=== PATIENT | female | born 1970 | race Caucasian/White ===

== ENCOUNTER 2024-05-23 08:22 | Emergency (ER) | payer OTHER, SELFPAY ==
[2024-05-23 08:40] VITALS: BP 131/84; PULSE 103; TEMP 36.7; O2SAT 99; BMI 30.4
--- NOTE | 2024-05-23 08:54 | ED.NAVMDI1 ---
HPI - Nausea/Vomiting/Diarrhea General Chief complaint: Nausea/Vomiting/Diarrhea Stated complaint: FLU LIKE SYMPTOMS/ POST OPERATIVE COMPLICATIONS Time Seen by Provider: 05/23/24 08:28 Source: patient Mode of arrival: Wheelchair Limitations: no limitations History of Present Illness HPI Narrative: 53-year-old female presents to the emergency department for nausea vomiting and diarrhea which began about 2:00 this morning. She was recently around a family member who has similar symptoms. No fever or hematemesis. She had inguinal hernia repair about a month ago. Related Data Home Medications ?Medication ?Instructions ?Recorded ?Confirmed amlodipine 10 mg tablet 10 mg PO DAILY 05/23/24 05/23/24 metformin 1,000 mg tablet 500 mg PO DAILY 05/23/24 05/23/24 olmesartan 40 mg tablet (Benicar) 40 mg PO DAILY 05/23/24 05/23/24 omeprazole 20 mg capsule,delayed 20 mg PO DAILY 05/23/24 05/23/24 release rosuvastatin 20 mg tablet (Crestor) 20 mg PO DAILY 05/23/24 05/23/24 sertraline 100 mg tablet (Zoloft) 50 mg PO DAILY 05/23/24 05/23/24 trazodone 50 mg tablet 25 mg PO BEDTIME 05/23/24 05/23/24 Allergies Allergy/AdvReac Type Severity Reaction Status Date / Time lisinopril AdvReac Mild Cough Verified 05/23/24 08:40 Penicillins AdvReac Mild Hives Verified 05/23/24 08:40 Review of Systems ROS Narrative A ten point review of systems is negative except as noted above. Exam Narrative Exam Narrative: Nurses note and vital signs reviewed and patient is not hypoxic. General: The patient appears in no apparent distress. Skin: Warm, dry, no pallor noted. There is no rash noted. Head: Normocephalic, atraumatic Eye: Normal conjunctiva, no drainage Ears, Nose, Mouth, and Throat: oral mucosa is moist. Nares patent. Cardiovascular: Regular Rate and Rhythm Respiratory: Patient is in no distress, no accessory muscle use, lungs are clear to auscultation, no wheezing, rales or rhonchi Back: non-tender GI: Soft and nontender. Surgical incision well-healed Musculoskeletal: The patient has no evidence of calf tenderness, no pitting edema, symmetrical pulses noted bilaterally Neurological: A&O, normal speech Psychiatric: Cooperative Constitutional Vital Signs, click to edit/add: Last Vital Signs Temp 98.0 F 05/23/24 08:40 Pulse 103 H 05/23/24 08:40 Resp 18 05/23/24 08:40 BP 131/84 05/23/24 08:40 Pulse Ox 99 05/23/24 08:40 O2 Del Method Room Air 05/23/24 08:40 Course Vital Signs Vital signs: Vital Signs Temperature 98.0 F 05/23/24 08:40 Pulse Rate 103 H 05/23/24 08:40 Respiratory Rate 18 05/23/24 08:40 Blood Pressure 131/84 05/23/24 08:40 Pulse Oximetry 99 05/23/24 08:40 Oxygen Delivery Method Room Air 05/23/24 08:40 Temperature 98.0 F 05/23/24 08:40 Pulse Rate 103 H 05/23/24 08:40 Respiratory Rate 18 05/23/24 08:40 Blood Pressure 131/84 05/23/24 08:40 Pulse Oximetry 99 05/23/24 08:40 Oxygen Delivery Method Room Air 05/23/24 08:40 MDM - Nausea/Vomiting/Diarrhea MDM Narrative Medical decision making narrative: Blood work is nonspecific. The patient was given IV fluids and IV Zofran and feels much better and is tolerating p.o. liquids. She is discharged home with a prescription for Zofran. Treatment diagnosis and follow-up were discussed with the patient. Differential Diagnosis Differential diagnosis: Likely food poisoning, gastroenteritis and dehydration Lab Data Attestation: I reviewed the patient's lab results. Labs: Lab Results 05/23/24 Range/Units 08:50 WBC 13.5 H (4.0-11.0) 10^3/uL RBC 4.57 (4.20-5.40) 10^6/uL Hgb 13.9 (12.0-16.0) g/dL Hct 42.1 (36.0-48.0) % MCV 92.1 (81.0-99.0) fL MCH 30.4 (26.7-34.0) pg MCHC 33.0 (29.9-35.2) g/dL RDW 13.0 (11.0-15.0) % Plt Count 338 (150-450) 10^3/uL MPV 8.4 L (9.5-13.5) fL Seg Neuts % (Manual) 85.0 H (43.0-75.0) Band Neutrophils % 11.0 H (0-5) % Lymphocytes % (Manual) 2.0 L (20.5-60.0) % Monocytes % (Manual) 0.0 L (1.7-12.0) % Eosinophils % (Manual) 2.0 (0.9-7.0) % Basophils % (Manual) 0.0 L (0.2-2.0) % Neutrophils # (Manual) 11.47 H (1.4-6.5) 10^3/uL Band Neutrophils # 1.5 H (0.0-0.3) 10^3/uL Lymphocytes # (Manual) 0.27 L (1.20-3.80) 10^3/uL Monocytes # (Manual) 0.00 L (0.30-0.80) 10^3/uL Eosinophils # (Manual) 0.27 (0.00-0.70) 10^3/uL Basophils # (Manual) 0.00 (0.00-0.10) 10^3/uL Anisocytosis 1+ Sodium 147 H (136-145) mmol/L Potassium 3.9 (3.5-5.1) mmol/L Chloride 107 (98-107) mmol/L Carbon Dioxide 25.3 (21.0-32.0) mmol/L Anion Gap 18.6 BUN 19.0 H (7.0-18.0) mg/dL Creatinine 0.78 (0.55-1.02) mg/dL Est GFR ( Amer) >60 (>=60 mL/min/1.73m^2) Est GFR (Non-Af Amer) >60 (>=60 mL/min/1.73m^2) BUN/Creatinine Ratio 24.4 Glucose 119 H (74-106) mg/dL Calcium 8.8 (8.5-10.1) mg/dL Discharge Plan Discharge Chief Complaint: Nausea/Vomiting/Diarrhea Clinical Impression: Nausea and vomiting Patient Disposition: Home, Self-Care Time of Disposition Decision: 10:20 Condition: Good Mode of Transportation: Private Vehicle Prescriptions / Home Meds: No Action omeprazole 20 mg capsule,delayed release(DR/EC) 20 mg PO DAILY olmesartan [Benicar] 40 mg tablet 40 mg PO DAILY amlodipine 10 mg tablet 10 mg PO DAILY rosuvastatin [Crestor] 20 mg tablet 20 mg PO DAILY sertraline [Zoloft] 100 mg tablet 50 mg PO DAILY metformin 1,000 mg tablet 500 mg PO DAILY trazodone 50 mg tablet 25 mg PO BEDTIME Print Language: [place] Referrals: Physician,Non-Staff, MD [Primary Care Provider] - 1 week
[2024-05-23] MEDS: ONDANSETRON PF 4 MG/2 ML VIAL IV (09:05)
[2024-05-23] MEDS: 0.9 % SODIUM CHLORIDE 1,000 ML 1000 ML IV (09:05)
[2024-05-23 09:13] LABS: Hematocrit 42.1 % (36.0-48.0); Hemoglobin 13.9 g/dL (12.0-16.0); Mean Corpuscular Hemoglobin 30.4 pg (26.7-34.0); Mean Corpuscular Volume 92.1 fL (81.0-99.0); Mean Platelet Volume 8.4 fL (9.5-13.5); Platelet Count 338 10^3/uL (150-450); Red Blood Count 4.57 10^6/uL (4.20-5.40); White Blood Count 13.5 10^3/uL (4.0-11.0)
[2024-05-23 09:22] LABS: Anion Gap 18.6; BUN Creatinine Ratio 24.4; Calcium 8.8 mg/dL (8.5-10.1); Carbon Dioxide 25.3 mmol/L (21.0-32.0); Chloride 107 mmol/L (98-107); Estimated GFR (African America >60 (>=60 mL/min/1.73m^2); Estimated GFR (Non-African Ame >60 (>=60 mL/min/1.73m^2); Glucose 119 mg/dL (74-106); Potassium 3.9 mmol/L (3.5-5.1); Sodium 147 mmol/L (136-145)
[2024-05-23 09:39] LABS: Band Neutrophils Absolute 1.5 10^3/uL (0.0-0.3); Eosinophils Absolute Manual 0.27 10^3/uL (0.00-0.70); Lymphocytes Absolute Manual 0.27 10^3/uL (1.20-3.80); Segmented Neut Absolute Manual 11.47 10^3/uL (1.4-6.5)
[2024-05-23 09:40] LABS: Anisocytosis 1+
== END 2024-05-23 10:38 | disposition home or self-care (01) ==
PROVIDERS: Emergency Provider Emergency Medicine
DX: R11.2 Nausea with vomiting, unspecified (principal)
CPT/HCPCS: 36415; 80048; 85007; 85027; 96361; 96374; 99284; J2405